=== PATIENT | male | born 1975 | race Caucasian/White ===

== ENCOUNTER 2022-08-10 15:01 | Outpatient (CLI) | payer OTHER | END 2022-08-10 15:02 | disposition home or self-care (01) | LOC: BICULT 15:01 | PROVIDERS: ATTEND Urology | DX: N50.82 Scrotal pain (principal); N43.40 Spermatocele of epididymis, unspecified; N50.3 Cyst of epididymis; Z98.52 Vasectomy status | CPT/HCPCS: 76870; 93976 ==